=== PATIENT | male | born 1990 | race American Indian/Alaskan Native ===

== ENCOUNTER 2017-11-26 00:05 | Emergency (ER) | payer SELFPAY ==
[2017-11-26 00:18] VITALS: RESP 20
--- NOTE | 2017-11-26 01:20 | C.PDOC ---
History Of Present Illness 27 year old male presents to the ER with a complaint of left shoulder pain for the past 4 days. Patient states he was at work moving boxes when he felt a "pop " to the left shoulder. Since then patient has had lingering pain which prompted visit. Denies weakness or numbness. Time Seen by Provider: 11/26/17 00:14 Chief Complaint (Nursing): Upper Extremity Problem/Injury History Per: Patient History/Exam Limitations: no limitations Onset/Duration Of Symptoms: Days Current Symptoms Are (Timing): Still Present Exacerbating Factor(s): Nothing Recent travel outside of the [place]: No Past Medical History Reviewed: Historical Data, Nursing Documentation, Vital Signs Vital Signs: Last Vital Signs Temp 98 F 11/26/17 01:30 Pulse 92 H 11/26/17 01:30 Resp 20 11/26/17 01:30 BP 130/65 11/26/17 01:30 Pulse Ox 100 11/26/17 01:45 Family History: States: Unknown Family Hx - Social History Hx Alcohol Use: No Hx Substance Use: No - Immunization History Hx Tetanus Toxoid Vaccination: No Hx Influenza Vaccination: No Hx Pneumococcal Vaccination: No Review Of Systems Musculoskeletal: Positive for: Shoulder Pain Neurological: Negative for: Weakness, Numbness Physical Exam - Physical Exam Appears: Non-toxic Skin: Normal Color, Warm, Dry Head: Atraumatic, Normacephalic Eye(s): bilateral: Normal Inspection Extremity: Normal ROM (x4), No Tenderness, No Deformity, No Swelling Pulses: Left Radial: Normal, Right Radial: Normal Neurological/Psych: Oriented x3, Normal Speech, Normal Motor, Normal Sensation ED Course And Treatment O2 Sat by Pulse Oximetry: 100 (Room air) Pulse Ox Interpretation: Normal - Other Rad Left shoulder x-ray X-Ray: Interpreted by Me, Viewed By Me Interpretation: No acute fractures or dislocations. Progress Note: Left shoulder x-ray ordered, results were negative. Patient is resting comfortably in the ER in no acute distress, vitals are stable, he was placed in shoulder sling for support and discharged with Rx and instructions to follow up with PMD. 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 - Scribe Statement The provider has reviewed the documentation as recorded by the Scribe Ralf Arguelles All medical record entries made by the Alicia were at my direction and personally dictated by me. I have reviewed the chart and agree that the record accurately reflects my personal performance of the history, physical exam, medical decision making, and the department course for this patient. I have also personally directed, reviewed, and agree with the discharge instructions and disposition.
[2017-11-26 01:32] VITALS: BP 130/65; PULSE 92; TEMP 98
[2017-11-26 01:44] VITALS: O2SAT 100
--- NOTE | 2017-11-26 08:21 | RAD ---
PROCEDURE: Radiographs of the Left Shoulder HISTORY: Rule out fracture COMPARISON: No prior. FINDINGS: BONES: Normal. No fracture. JOINTS: Normal. Glenohumeral and acromioclavicular joints preserved. No osteoarthritis. SOFT TISSUES: Normal. OTHER FINDINGS: None. IMPRESSION: Normal radiographs of the left shoulder. No evidence of acute displaced fracture nor dislocation.
== END 2017-11-26 01:32 | disposition home or self-care (01) ==
LOC: C.ER 00:05
DX: S43.402A Unspecified sprain of left shoulder joint, initial encounter (principal); X58.XXXA Exposure to other specified factors, initial encounter